=== PATIENT | male | born 1975 | race Asian ===

== ENCOUNTER 2019-08-23 12:34 | Inpatient (IN) | payer OTHER ==
[2019-08-23] MEDS ORDERED: ONDANSETRON 4 MG/2 ML INJ IV ONE (13:23)
[2019-08-23] MEDS ORDERED: SODIUM CHLORIDE 0.9% 1000 ML 1,000 ML IV ONE (13:23)
[2019-08-23] MEDS ORDERED: MORPHINE 4 MG/1 ML INJ IV ONE (13:24)
[2019-08-23] MEDS ORDERED: MORPHINE 2 MG/1 ML INJ ONE (13:26)
[2019-08-23] MEDS ORDERED: ONDANSETRON 4 MG/2 ML INJ ONE (13:26)
[2019-08-23] MEDS ORDERED: MORPHINE 2 MG/1 ML INJ IV ONE ×2 (13:28)
--- NOTE | 2019-08-23 13:29 | Event Note ---
ED Screening Note Date of service: 08/23/19 Time: 13:19 ED Screening Note: 44 y/o male c/o acute abd pain that woke him up this morning with N/V. Patient appears to be in distress diaphoretic with abd tenderness. This initial assessment/diagnostic orders/clinical plan/treatment(s) is/are sub ject to change based on patients health status, clinical progression and re- assessment by fellow clinical providers in the ED. Further treatment and workup at subsequent clinical providers discretion. Patient/guardian urged not to elope from the ED as their condition may be serious if not clinically assessed and managed. Initial orders include:
[2019-08-23 13:42] LABS: Hematocrit 51.5 % (35.5-45.6); Mean Corpuscular HGB Conc 35 % (32-34); Mean Corpuscular Volume 104 fl (84-94); Platelet Count 297 K/mm3 (140-440); Red Blood Count 4.96 M/mm3 (3.65-5.03); Red Cell Distribution Width 14.8 % (13.2-15.2)
[2019-08-23 14:02] LABS: Hemolysis Index 719
[2019-08-23 14:07] LABS: Alanine Aminotransferase TNR units/L (7-56); Albumin TNR g/dL (3.9-5); BUN/Creatinine Ratio TNR; Blood Urea Nitrogen TNR mg/dL (9-20); Calcium TNR mg/dL (8.4-10.2)
[2019-08-23 14:27] LABS: Band Neutrophils # (Manual) 0.4 K/mm3; Basophils % (Manual) 0 % (0.0-1.8); Eosinophils % (Manual) 0 % (0.0-4.3); Platelet Estimate Consistent w Auto; RBC Morphology Normal; Total Cells Counted 100
[2019-08-23] MEDS ORDERED: FAMOTIDINE 20 MG/2 ML INJ IV ONE ×2 (14:39→14:42)
[2019-08-23] MEDS ORDERED: KETOROLAC 30 MG/1 ML INJ IV ONE (14:39)
[2019-08-23] MEDS ORDERED: DICYCLOMINE 10 MG/5 ML ORAL LIQD PO ONE (14:39)
[2019-08-23] MEDS ORDERED: KETOROLAC 30 MG/1 ML INJ ONE (14:42)
[2019-08-23 14:44] LABS: Alanine Aminotransferase 79 units/L (7-56); Albumin 4.2 g/dL (3.9-5); BUN/Creatinine Ratio 3; Blood Urea Nitrogen 3 mg/dL (9-20); Hemolysis Index 13
--- NOTE | 2019-08-23 15:00 | Emergency Department Report ---
ED Abdominal Pain HPI - General Chief Complaint: Abdominal Pain Stated Complaint: ABD PAIN Time Seen by Provider: 08/23/19 13:18 Source: patient Mode of arrival: Ambulatory Limitations: No Limitations - History of Present Illness Initial Comments: This is a 44-year-old male who presents to ED with periumbilical abdominal pain with nausea vomiting that began yesterday. Patient states that his symptoms came around 1 AM today. Patient states that he is unable to hold any food or liquids down. Patient states he only had lobster and some vegetables for dinner last night. Patient states pain is mid abdominal nonradiating excruciating in nature. Patient does state that he is social drinker and had about 2 mixed drinks last night. He denies fevers/diarrhea/chest pain MD Complaint: abdominal pain Location: periumbilical Radiation: none Migration to: no migration Severity scale (0 -10): 10 Quality: cramping, stabbing, aching Consistency: constant Improves With: nothing Associated Symptoms: nausea, vomiting, chills. denies: diarrhea, fever, constipation - Related Data Allergies Allergy/AdvReac Type Severity Reaction Status Date / Time Penicillins Allergy Swelling Verified 08/23/19 12:35 ED Review of Systems ROS: Stated complaint: ABD PAIN Other details as noted in HPI Comment: All other systems reviewed and negative ED Past Medical Hx - Past Medical History Hx Hypertension: Yes - Surgical History Additional Surgical History: left shoulder - Social History Smoking Status: Current Every Day Smoker Substance Use Type: Alcohol, Marijuana ED Physical Exam - General Limitations: No Limitations General appearance: alert, in no apparent distress - Head Head exam: Present: atraumatic, normocephalic - Eye Eye exam: Present: normal appearance - ENT ENT exam: Present: mucous membranes moist - Neck Neck exam: Present: normal inspection - Respiratory Respiratory exam: Present: normal lung sounds bilaterally. Absent: respiratory distress - Cardiovascular Cardiovascular Exam: Present: regular rate, normal rhythm. Absent: systolic murmur, diastolic murmur, rubs, gallop - GI/Abdominal GI/Abdominal exam: Present: soft, tenderness, guarding, normal bowel sounds. Absent: rebound, mass - Rectal Rectal exam: Present: deferred - Extremities Exam Extremities exam: Present: normal inspection - Back Exam Back exam: Present: normal inspection - Neurological Exam Neurological exam: Present: alert, oriented X3 - Psychiatric Psychiatric exam: Present: normal affect, normal mood - Skin Skin exam: Present: warm, dry, intact, normal color. Absent: rash ED Course Vital Signs 08/23/19 08/23/19 08/23/19 13:20 13:59 14:08 Pulse Rate 114 H Respiratory 22 18 18 Rate Blood Pressure Blood Pressure 124/88 [Right] O2 Sat by Pulse 98 Oximetry 08/23/19 08/23/19 08/23/19 14:50 15:20 15:38 Pulse Rate 107 H Respiratory 18 18 18 Rate Blood Pressure 150/101 Blood Pressure [Right] O2 Sat by Pulse 100 Oximetry 08/23/19 08/23/19 08/23/19 17:22 17:52 18:17 Pulse Rate Respiratory 18 18 18 Rate Blood Pressure Blood Pressure [Right] O2 Sat by Pulse 99 Oximetry - Reevaluation(s) Reevaluation #1: 08/23/19 16:50 Patient has received morphine, Toradol and some fluids for pain. Patient states he still in a lot of pain. Some discomfort balled up in hospital bed groaning. Dilaudid 1 mg ordered. 08/23/19 17:02 - Consultations Consultation #1: Discussed patient with Dr. Leo at the hospitalist who is excepting patient to MedSurg service to be admitted inpatient 08/23/19 16:50 ED Medical Decision Making - Lab Data Result diagrams: 08/24/19 05:42 08/24/19 05:42 Laboratory Last Values WBC 13.8 K/mm3 (4.5-11.0) H 08/23/19 Unknown RBC 4.96 M/mm3 (3.65-5.03) 08/23/19 Unknown Hgb 18.0 gm/dl (11.8-15.2) H 08/23/19 Unknown Hct 51.5 % (35.5-45.6) H 08/23/19 Unknown MCV 104 fl (84-94) H 08/23/19 Unknown MCH 36 pg (28-32) H 08/23/19 Unknown MCHC 35 % (32-34) H 08/23/19 Unknown RDW 14.8 % (13.2-15.2) 08/23/19 Unknown Plt Count 297 K/mm3 (140-440) 08/23/19 Unknown Add Manual Diff Complete 08/23/19 Unknown Total Counted 100 08/23/19 Unknown Seg Neuts % (Manual) 94.0 % (40.0-70.0) H 08/23/19 Unknown Band Neutrophils % 3.0 % 08/23/19 Unknown Lymphocytes % (Manual) 0 % (13.4-35.0) L 08/23/19 Unknown Reactive Lymphs % (Man) 0 % 08/23/19 Unknown Monocytes % (Manual) 3.0 % (0.0-7.3) 08/23/19 Unknown Eosinophils % (Manual) 0 % (0.0-4.3) 08/23/19 Unknown Basophils % (Manual) 0 % (0.0-1.8) 08/23/19 Unknown Metamyelocytes % 0 % 08/23/19 Unknown Myelocytes % 0 % 08/23/19 Unknown Promyelocytes % 0 % 08/23/19 Unknown Blast Cells % 0 % 08/23/19 Unknown Nucleated RBC % 2.0 % (0.0-0.9) H 08/23/19 Unknown Seg Neutrophils # Man 13.0 K/mm3 (1.8-7.7) H 08/23/19 Unknown Band Neutrophils # 0.4 K/mm3 08/23/19 Unknown Lymphocytes # (Manual) 0.0 K/mm3 (1.2-5.4) L 08/23/19 Unknown Abs React Lymphs (Man) 0.0 K/mm3 08/23/19 Unknown Monocytes # (Manual) 0.4 K/mm3 (0.0-0.8) 08/23/19 Unknown Eosinophils # (Manual) 0.0 K/mm3 (0.0-0.4) 08/23/19 Unknown Basophils # (Manual) 0.0 K/mm3 (0.0-0.1) 08/23/19 Unknown Metamyelocytes # 0.0 K/mm3 08/23/19 Unknown Myelocytes # 0.0 K/mm3 08/23/19 Unknown Promyelocytes # 0.0 K/mm3 08/23/19 Unknown Blast Cells # 0.0 K/mm3 08/23/19 Unknown WBC Morphology Not Reportable 08/23/19 Unknown Hypersegmented Neuts Not Reportable 08/23/19 Unknown Hyposegmented Neuts Not Reportable 08/23/19 Unknown Hypogranular Neuts Not Reportable 08/23/19 Unknown Smudge Cells Not Reportable 08/23/19 Unknown Toxic Granulation Not Reportable 08/23/19 Unknown Toxic Vacuolation Not Reportable 08/23/19 Unknown Dohle Bodies Not Reportable 08/23/19 Unknown Pelger-Huet Anomaly Not Reportable 08/23/19 Unknown Ismael Rods Not Reportable 08/23/19 Unknown Platelet Estimate Consistent w auto 08/23/19 Unknown Clumped Platelets Not Reportable 08/23/19 Unknown Plt Clumps, EDTA Not Reportable 08/23/19 Unknown Large Platelets Not Reportable 08/23/19 Unknown Giant Platelets Not Reportable 08/23/19 Unknown Platelet Satelliting Not Reportable 08/23/19 Unknown Plt Morphology Comment Not Reportable 08/23/19 Unknown RBC Morphology Normal 08/23/19 Unknown Dimorphic RBCs Not Reportable 08/23/19 Unknown Polychromasia Not Reportable 08/23/19 Unknown Hypochromasia Not Reportable 08/23/19 Unknown Poikilocytosis Not Reportable 08/23/19 Unknown Anisocytosis Not Reportable 08/23/19 Unknown Microcytosis Not Reportable 08/23/19 Unknown Macrocytosis Not Reportable 08/23/19 Unknown Spherocytes Not Reportable 08/23/19 Unknown Pappenheimer Bodies Not Reportable 08/23/19 Unknown Sickle Cells Not Reportable 08/23/19 Unknown Target Cells Not Reportable 08/23/19 Unknown Tear Drop Cells Not Reportable 08/23/19 Unknown Ovalocytes Not Reportable 08/23/19 Unknown Helmet Cells Not Reportable 08/23/19 Unknown Lopez-Cobre Bodies Not Reportable 08/23/19 Unknown Ponsford Rings Not Reportable 08/23/19 Unknown Colby Cells Not Reportable 08/23/19 Unknown Bite Cells Not Reportable 08/23/19 Unknown Crenated Cell Not Reportable 08/23/19 Unknown Elliptocytes Not Reportable 08/23/19 Unknown Acanthocytes (Spur) Not Reportable 08/23/19 Unknown Rouleaux Not Reportable 08/23/19 Unknown Hemoglobin C Crystals Not Reportable 08/23/19 Unknown Schistocytes Not Reportable 08/23/19 Unknown Malaria parasites Not Reportable 08/23/19 Unknown Ryder Bodies Not Reportable 08/23/19 Unknown Hem Pathologist Commnt No 08/23/19 Unknown Sodium 141 mmol/L (137-145) 08/23/19 Unknown Sodium TNR 08/23/19 Unknown Potassium 2.2 mmol/L (3.6-5.0) L* 08/23/19 Unknown Potassium TNR 08/23/19 Unknown Chloride 89.2 mmol/L (98-107) L 08/23/19 Unknown Chloride TNR 08/23/19 Unknown Carbon Dioxide 22 mmol/L (22-30) 08/23/19 Unknown Carbon Dioxide TNR 08/23/19 Unknown Anion Gap 32 mmol/L 08/23/19 Unknown Anion Gap TNR 08/23/19 Unknown BUN 3 mg/dL (9-20) L 08/23/19 Unknown BUN TNR 08/23/19 Unknown Creatinine 0.9 mg/dL (0.8-1.5) 08/23/19 Unknown Creatinine TNR 08/23/19 Unknown Estimated GFR > 60 ml/min 08/23/19 Unknown Estimated GFR TNR 08/23/19 Unknown BUN/Creatinine Ratio 3 % 08/23/19 Unknown BUN/Creatinine Ratio TNR 08/23/19 Unknown Glucose 166 mg/dL (75-100) H 08/23/19 Unknown Glucose TNR 08/23/19 Unknown POC Glucose 156 (70-105) H 08/23/19 13:32 Calcium 9.0 mg/dL (8.4-10.2) 08/23/19 Unknown Calcium TNR 08/23/19 Unknown Total Bilirubin 1.40 mg/dL (0.1-1.2) H 08/23/19 Unknown Total Bilirubin TNR 08/23/19 Unknown AST 86 units/L (5-40) H 08/23/19 Unknown AST TNR 08/23/19 Unknown ALT 79 units/L (7-56) H 08/23/19 Unknown ALT TNR 08/23/19 Unknown Alkaline Phosphatase 219 units/L (35-129) H 08/23/19 Unknown Alkaline Phosphatase TNR 08/23/19 Unknown Total Protein 8.9 g/dL (6.3-8.2) H 08/23/19 Unknown Total Protein TNR 08/23/19 Unknown Albumin 4.2 g/dL (3.9-5) 08/23/19 Unknown Albumin TNR 08/23/19 Unknown Albumin/Globulin Ratio 0.9 % 08/23/19 Unknown Albumin/Globulin Ratio TNR 08/23/19 Unknown Lipase 526 units/L (13-60) H 08/23/19 Unknown Lipase TNR 08/23/19 Unknown - Radiology Data Radiology results: report reviewed, image reviewed - Medical Decision Making INDICATION: abd pain and tenderness. TECHNIQUE: All CT scans at this location are performed using CT dose reduction for ALARA by means of automated exposure control. COMPARISON: None available. FINDINGS: Lung bases are clear. Diffuse hepatic steatosis, with no focal liver lesions. Gallbladder, spleen, kidneys and adrenals are negative. Abdominal aorta is normal in size. Moderate inflammatory change and focal fluid accumulation are demonstrated in and around the pancreas, consistent with acute pancreatitis. Some fluid extends down the left paracolic space. Pelvis No significant free fluid in the pelvis. Urinary bladder and distal ureters are negative. Normal appendix. No acute skeletal lesions. IMPRESSION: 1. Acute pancreatitis. 2. Hepatic steatosis. Signer Name: Rob Eagle MD Signed: 08/23/2019 3:38 PM Workstation Name: [employer] Transcribed By: TM Dictated By: Rob Eagle MD Electronically Authenticated By: Rob Eagle MD Signed Date/Time: 08/23/19 1538 Critical care attestation.: If time is entered above; I have spent that time in minutes in the direct care of this critically ill patient, excluding procedure time. ED Disposition Clinical Impression: Hepatic steatosis, Hypokalemia, Abdominal pain, Acute hepatitis Acute pancreatitis Qualifiers: Pancreatitis type: unspecified pancreatitis type Disposition: OP ADMIT IP TO THIS HOSP Is pt being admited?: Yes Does the pt Need Aspirin: No Condition: Stable
[2019-08-23] MEDS: POTASSIUM CHLORIDE 10 MEQ 10 MEQ/100 ML BAG IV SCH ×4 (15:32→22:54)
--- NOTE | 2019-08-23 15:43 | Cat Scan Report ---
CT abdomen pelvis w con INDICATION: abd pain and tenderness. TECHNIQUE: All CT scans at this location are performed using CT dose reduction for ALARA by means of automated e xposure control. COMPARISON: None available. FINDINGS: Lung bases are clear. Diffuse hepatic steatosis, with no focal liver lesions. Gallbladder, spleen, ki dneys and adrenals are negative. Abdominal aorta is normal in size. Moderate inflammatory change and focal fluid accumulation are demonstrated in and around the pancreas , consistent with acute pancreatitis. Some fluid extends down the left paracolic space. Pelvis No significant free fluid in the pelvis. Urinary bladder and distal ureters are negative. Normal appe ndix. No acute skeletal lesions. IMPRESSION: 1. Acute pancreatitis. 2. Hepatic steatosis. Signer Name: Rob Eagle MD Signed: 08/23/2019 3:38 PM Workstation Name: [id number]
[2019-08-23] MEDS ORDERED: HYDROmorphone 1 MG/1 ML INJ IV ONE (17:00)
[2019-08-23 17:05] LABS: Bilirubin,Urine NEG (Negative); Blood,Urine MOD (Negative); Color,Urine Amber (Yellow); Hyaline Casts,Urine 3 /LPF; Mucus,Urine FEW /HPF; Urobilinogen,Urine < 2.0 mg/dL (<2.0)
[2019-08-23 17:06] LABS: Amphetamine Screen,Urine PRESUMPTIVE NEGATIVE; Benzodiazepines Screen,Urine PRESUMPTIVE NEGATIVE; Cocaine Screen,Urine PRESUMPTIVE NEGATIVE; Methadone Screen,Urine PRESUMPTIVE NEGATIVE
[2019-08-23] MEDS ORDERED: METOCLOPRAMIDE 10 MG/2 ML INJ ONE (17:16)
[2019-08-23 17:25] LABS: Cannabinoid Screen,Urine PRESUMPTIVE POSITIVE; Opiate Screen,Urine PRESUMPTIVE POSITIVE
[2019-08-23] MEDS ORDERED: METOCLOPRAMIDE 10 MG/2 ML INJ IV ONE (17:27)
[2019-08-23] MEDS ORDERED: ACETAMINOPHEN 325 MG TAB PO PRN (18:53)
[2019-08-23] MEDS ORDERED: D5W/0.9% NACL 1,000 ML IV SCH (19:00)
[2019-08-23] MEDS ORDERED: HYDROmorphone 1 MG/1 ML INJ ONE (19:16)
[2019-08-23] MEDS: HYDROmorphone 1 MG/1 ML INJ IV PRN ×2 (19:17→22:52)
--- NOTE | 2019-08-23 19:37 | History and Physical Report ---
History of Present Illness Date of examination: 08/23/19 Date of admission: 08/23/19 16:44 Chief complaint: Severe abdominal pain for 2 days associated with vomiting History of present illness: 44-year-old -[place] male with history of hypertension comes in for nausea vomiting and pain for 2 days. He says he has vomited "thousand times". Apparently he has vomited 10-12 times. Severe epigastric pain which is about 10 on a scale of 1-10. Sharp in nature. Not precipitated by alcohol. Patient consumes alcohol about twice a week. His last cocktail drink was 3 days ago. No precipitating factors. No NSAIDs. No drugs. No recent travel. No fever or chills. Pain is periumbilical and epigastric and sharp in nature radiating to the back. Unable to hold any foods. Past Medical History Hypertension: Yes Surgical History Additional Surgical History: left shoulder Social History Smoking Status: Current Every Day Smoker Substance Use Type: Alcohol, Marijuana Family history HTN Review of Systems ROS: Stated complaint: ABD PAIN--10 on a scale of 1-10 Sharp in nature associated with persistent vomiting for last 2 days. 14 point system review of systems done----otherwise negative Other details as noted in HPI Comment: All other systems reviewed and negative Medications and Allergies Allergies Allergy/AdvReac Type Severity Reaction Status Date / Time Penicillins Allergy Swelling Verified 08/23/19 12:35 Active Meds: Active Medications Acetaminophen (Tylenol) 650 mg PO Q4H PRN PRN Reason: Pain MILD(1-3)/Fever >100.5/DOCKERY Famotidine (Pepcid) 20 mg IV BID TERRI Hydromorphone HCl (Dilaudid) 1 mg IV Q3H PRN PRN Reason: Pain , Severe (7-10) Last Admin: 08/23/19 19:17 Dose: 1 mg Documented by: Dextrose/Sodium Chloride (D5ns) 1,000 mls @ 100 mls/hr IV DIRECT TERRI Potassium Chloride (Kcl 10meq/100ml) 10 meq in 100 mls @ 100 mls/hr IV Q1H [facility] Stop: 08/23/19 22:59 Metoclopramide HCl (Reglan) 10 mg IV Q6H PRN PRN Reason: Nausea And Vomiting Morphine Sulfate (Morphine) 2 mg IV Q4H PRN PRN Reason: Pain, Moderate (4-6) Ondansetron HCl (Zofran) 4 mg IV Q3H PRN PRN Reason: Nausea And Vomiting Sodium Chloride (Sodium Chloride Flush Syringe 10 Ml) 10 ml IV BID TERRI Sodium Chloride (Sodium Chloride Flush Syringe 10 Ml) 10 ml IV PRN PRN PRN Reason: LINE FLUSH Exam - Constitutional Vitals: Temp Pulse Resp BP Pulse Ox 107 H 18 150/101 99 08/23/19 15:38 08/23/19 18:17 08/23/19 15:38 08/23/19 18:17 General appearance: Present: mild distress - Cardiovascular Heart rate: 78 Rhythm: regular - Extremities Extremities: no ischemia Extremity abnormal: edema - Abdominal General gastrointestinal: Present: tender, normal bowel sounds Localized gastrointestinal: tender: diffuse, guarding: diffuse, rebound: diffuse Male genitourinary: Present: deferred - Rectal Rectal Exam: deferred - Musculoskeletal Musculoskeletal: strength equal bilaterally - Psychiatric Psychiatric: appropriate mood/affect - Neurologic Neurologic: CNII-XII intact - Allied Health Allied health notes reviewed: nursing, case management (No actually had good sleep on board will go) Results - Labs CBC & Chem 7: 08/23/19 Unknown 08/23/19 Unknown Labs: Laboratory Last Values WBC 13.8 K/mm3 (4.5-11.0) H 08/23/19 Unknown RBC 4.96 M/mm3 (3.65-5.03) 08/23/19 Unknown Hgb 18.0 gm/dl (11.8-15.2) H 08/23/19 Unknown Hct 51.5 % (35.5-45.6) H 08/23/19 Unknown MCV 104 fl (84-94) H 08/23/19 Unknown MCH 36 pg (28-32) H 08/23/19 Unknown MCHC 35 % (32-34) H 08/23/19 Unknown RDW 14.8 % (13.2-15.2) 08/23/19 Unknown Plt Count 297 K/mm3 (140-440) 08/23/19 Unknown Add Manual Diff Complete 08/23/19 Unknown Total Counted 100 08/23/19 Unknown Seg Neuts % (Manual) 94.0 % (40.0-70.0) H 08/23/19 Unknown Band Neutrophils % 3.0 % 08/23/19 Unknown Lymphocytes % (Manual) 0 % (13.4-35.0) L 08/23/19 Unknown Reactive Lymphs % (Man) 0 % 08/23/19 Unknown Monocytes % (Manual) 3.0 % (0.0-7.3) 08/23/19 Unknown Eosinophils % (Manual) 0 % (0.0-4.3) 08/23/19 Unknown Basophils % (Manual) 0 % (0.0-1.8) 08/23/19 Unknown Metamyelocytes % 0 % 08/23/19 Unknown Myelocytes % 0 % 08/23/19 Unknown Promyelocytes % 0 % 08/23/19 Unknown Blast Cells % 0 % 08/23/19 Unknown Nucleated RBC % 2.0 % (0.0-0.9) H 08/23/19 Unknown Seg Neutrophils # Man 13.0 K/mm3 (1.8-7.7) H 08/23/19 Unknown Band Neutrophils # 0.4 K/mm3 08/23/19 Unknown Lymphocytes # (Manual) 0.0 K/mm3 (1.2-5.4) L 08/23/19 Unknown Abs React Lymphs (Man) 0.0 K/mm3 08/23/19 Unknown Monocytes # (Manual) 0.4 K/mm3 (0.0-0.8) 08/23/19 Unknown Eosinophils # (Manual) 0.0 K/mm3 (0.0-0.4) 08/23/19 Unknown Basophils # (Manual) 0.0 K/mm3 (0.0-0.1) 08/23/19 Unknown Metamyelocytes # 0.0 K/mm3 08/23/19 Unknown Myelocytes # 0.0 K/mm3 08/23/19 Unknown Promyelocytes # 0.0 K/mm3 08/23/19 Unknown Blast Cells # 0.0 K/mm3 08/23/19 Unknown WBC Morphology Not Reportable 08/23/19 Unknown Hypersegmented Neuts Not Reportable 08/23/19 Unknown Hyposegmented Neuts Not Reportable 08/23/19 Unknown Hypogranular Neuts Not Reportable 08/23/19 Unknown Smudge Cells Not Reportable 08/23/19 Unknown Toxic Granulation Not Reportable 08/23/19 Unknown Toxic Vacuolation Not Reportable 08/23/19 Unknown Dohle Bodies Not Reportable 08/23/19 Unknown Pelger-Huet Anomaly Not Reportable 08/23/19 Unknown Ismael Rods Not Reportable 08/23/19 Unknown Platelet Estimate Consistent w auto 08/23/19 Unknown Clumped Platelets Not Reportable 08/23/19 Unknown Plt Clumps, EDTA Not Reportable 08/23/19 Unknown Large Platelets Not Reportable 08/23/19 Unknown Giant Platelets Not Reportable 08/23/19 Unknown Platelet Satelliting Not Reportable 08/23/19 Unknown Plt Morphology Comment Not Reportable 08/23/19 Unknown RBC Morphology Normal 08/23/19 Unknown Dimorphic RBCs Not Reportable 08/23/19 Unknown Polychromasia Not Reportable 08/23/19 Unknown Hypochromasia Not Reportable 08/23/19 Unknown Poikilocytosis Not Reportable 08/23/19 Unknown Anisocytosis Not Reportable 08/23/19 Unknown Microcytosis Not Reportable 08/23/19 Unknown Macrocytosis Not Reportable 08/23/19 Unknown Spherocytes Not Reportable 08/23/19 Unknown Pappenheimer Bodies Not Reportable 08/23/19 Unknown Sickle Cells Not Reportable 08/23/19 Unknown Target Cells Not Reportable 08/23/19 Unknown Tear Drop Cells Not Reportable 08/23/19 Unknown Ovalocytes Not Reportable 08/23/19 Unknown Helmet Cells Not Reportable 08/23/19 Unknown [place] Bodies Not Reportable 08/23/19 Unknown [place] Rings Not Reportable 08/23/19 Unknown Chani Cells Not Reportable 08/23/19 Unknown Bite Cells Not Reportable 08/23/19 Unknown Crenated Cell Not Reportable 08/23/19 Unknown Elliptocytes Not Reportable 08/23/19 Unknown Acanthocytes (Spur) Not Reportable 08/23/19 Unknown Rouleaux Not Reportable 08/23/19 Unknown Hemoglobin C Crystals Not Reportable 08/23/19 Unknown Schistocytes Not Reportable 08/23/19 Unknown Malaria parasites Not Reportable 08/23/19 Unknown Ryder Bodies Not Reportable 08/23/19 Unknown Hem Pathologist Commnt No 08/23/19 Unknown Sodium 141 mmol/L (137-145) 08/23/19 Unknown Sodium TNR 08/23/19 Unknown Potassium 2.2 mmol/L (3.6-5.0) L* 08/23/19 Unknown Potassium TNR 08/23/19 Unknown Chloride 89.2 mmol/L (98-107) L 08/23/19 Unknown Chloride TNR 08/23/19 Unknown Carbon Dioxide 22 mmol/L (22-30) 08/23/19 Unknown Carbon Dioxide TNR 08/23/19 Unknown Anion Gap 32 mmol/L 08/23/19 Unknown Anion Gap TNR 08/23/19 Unknown BUN 3 mg/dL (9-20) L 08/23/19 Unknown BUN TNR 08/23/19 Unknown Creatinine 0.9 mg/dL (0.8-1.5) 08/23/19 Unknown Creatinine TNR 08/23/19 Unknown Estimated GFR > 60 ml/min 08/23/19 Unknown Estimated GFR TNR 08/23/19 Unknown BUN/Creatinine Ratio 3 % 08/23/19 Unknown BUN/Creatinine Ratio TNR 08/23/19 Unknown Glucose 166 mg/dL (75-100) H 08/23/19 Unknown Glucose TNR 08/23/19 Unknown POC Glucose 156 (70-105) H 08/23/19 13:32 Hemoglobin A1c 4.8 % (4-6) 08/23/19 Unknown Calcium 9.0 mg/dL (8.4-10.2) 08/23/19 Unknown Calcium TNR 08/23/19 Unknown Total Bilirubin 1.40 mg/dL (0.1-1.2) H 08/23/19 Unknown Total Bilirubin TNR 08/23/19 Unknown AST 86 units/L (5-40) H 08/23/19 Unknown AST TNR 08/23/19 Unknown ALT 79 units/L (7-56) H 08/23/19 Unknown ALT TNR 08/23/19 Unknown Alkaline Phosphatase 219 units/L (35-129) H 08/23/19 Unknown Alkaline Phosphatase TNR 08/23/19 Unknown Total Protein 8.9 g/dL (6.3-8.2) H 08/23/19 Unknown Total Protein TNR 08/23/19 Unknown Albumin 4.2 g/dL (3.9-5) 08/23/19 Unknown Albumin TNR 08/23/19 Unknown Albumin/Globulin Ratio 0.9 % 08/23/19 Unknown Albumin/Globulin Ratio TNR 08/23/19 Unknown Lipase 526 units/L (13-60) H 08/23/19 Unknown Lipase TNR 08/23/19 Unknown Urine Color Navya (Yellow) 08/23/19 Unknown Urine Turbidity Clear (Clear) 08/23/19 Unknown Urine pH 6.0 (5.0-7.0) 08/23/19 Unknown Ur Specific [place] 1.038 (1.003-1.030) H 08/23/19 Unknown Urine Protein 100 mg/dl mg/dL (Negative) 08/23/19 Unknown Urine Glucose (UA) Neg mg/dL (Negative) 08/23/19 Unknown Urine Ketones Tr mg/dL (Negative) 08/23/19 Unknown Urine Blood Mod (Negative) 08/23/19 Unknown Urine Nitrite Neg (Negative) 08/23/19 Unknown Urine Bilirubin Neg (Negative) 08/23/19 Unknown Urine Urobilinogen < 2.0 mg/dL (<2.0) 08/23/19 Unknown Ur Leukocyte Esterase Neg (Negative) 08/23/19 Unknown Urine WBC (Auto) 3.0 /HPF (0.0-6.0) 08/23/19 Unknown Urine RBC (Auto) 11.0 /HPF (0.0-6.0) 08/23/19 Unknown Hyaline Casts 3 /LPF 08/23/19 Unknown Urine Mucus Few /HPF 08/23/19 Unknown Urine Opiates Screen Presumptive positive 08/23/19 Unknown Urine Methadone Screen Presumptive negative 08/23/19 Unknown Ur Barbiturates Screen Presumptive negative 08/23/19 Unknown Ur Phencyclidine Scrn Presumptive negative 08/23/19 Unknown Ur Amphetamines Screen Presumptive negative 08/23/19 Unknown U Benzodiazepines Scrn Presumptive negative 08/23/19 Unknown Urine Cocaine Screen Presumptive negative 08/23/19 Unknown U Marijuana (THC) Screen Presumptive positive 08/23/19 Unknown Drugs of Abuse Note Disclamer 08/23/19 Unknown Short CBC 08/23/19 Range/Units Unknown WBC 13.8 H (4.5-11.0) K/mm3 Hgb 18.0 H (11.8-15.2) gm/dl Hct 51.5 H (35.5-45.6) % Plt Count 297 (140-440) K/mm3 BMP 08/23/19 08/23/19 Unknown Unknown Sodium TNR 141 Potassium TNR 2.2 L* Chloride TNR 89.2 L Carbon Dioxide TNR 22 BUN TNR 3 L Creatinine TNR 0.9 Glucose TNR 166 H Calcium TNR 9.0 Liver Function 08/23/19 08/23/19 Range/Units Unknown Unknown Total Bilirubin TNR 1.40 H AST TNR 86 H ALT TNR 79 H Alkaline Phosphatase TNR 219 H Albumin TNR 4.2 Urine 08/23/19 Range/Units Unknown Urine Color Navya (Yellow) Urine pH 6.0 (5.0-7.0) Ur Specific [place] 1.038 H (1.003-1.030) Urine Protein 100 mg/dl (Negative) mg/dL Urine Glucose (UA) Neg (Negative) mg/dL - Imaging and Cardiology CT scan - abdomen: report reviewed Imaging and Cardiology: CT of the abdomen. The blood. Broke there is broken broken FINDINGS: Lung bases are clear. Diffuse hepatic steatosis, with no focal liver lesions. Gallbladder, spleen, kidneys and adrenals are negative. Abdominal aorta is normal in size. Moderate inflammatory change and focal fluid accumulation are demonstrated in and around the pancreas, consistent with acute pancreatitis. Some fluid extends down the left paracolic space. Pelvis No significant free fluid in the pelvis. Urinary bladder and distal ureters are negative. Normal appendix. No acute skeletal lesions. IMPRESSION: 1. Acute pancreatitis. 2. Hepatic steatosis. Assessment and Plan Advance Directives: Yes (Full code) VTE prophylaxis?: Chemical Plan of care discussed with patient/family: Yes - Patient Problems (1) Acute pancreatitis Current Visit: Yes Status: Acute Qualifiers: Pancreatitis type: unspecified pancreatitis type Plan to address problem: CT scan and lipase consistent with acute pancreatitis Keep the patient nothing by mouth IV fluids for now IV Dilaudid 1 mg every 3 as needed along with Zofran and Reglan on a as needed basis TPN if necessary Symptoms may resolve in 48 to 72 hours (2) Hypokalemia Current Visit: Yes Status: Acute Plan to address problem: Supplemented with IV potassium Secondary to persistent vomiting (3) Transaminitis Current Visit: Yes Status: Acute Plan to address problem: Possible gallstone induced We will get surgery consult and GI consult (4) Acute hepatitis Current Visit: Yes Status: Acute Plan to address problem: Possible gallstone obstruction (5) Polycythemia due to fall in plasma volume Current Visit: Yes Status: Acute Plan to address problem: Polycythemia secondary to fall in volume because of vomiting Should correct with IV fluids (6) DVT prophylaxis Current Visit: Yes Status: Acute Plan to address problem: Heparin 5000 subcu every 12 and GI prophylaxis
[2019-08-23] MEDS: MORPHINE 2 MG/1 ML INJ IV PRN (20:48)
[2019-08-23] MEDS: FAMOTIDINE 20 MG/2 ML INJ IV SCH (22:43)
[2019-08-23] MEDS: HEPARIN 5,000 UNIT/1 ML VIAL SUB-Q SCH (22:47)
[2019-08-23] MEDS: ONDANSETRON 4 MG/2 ML INJ IV PRN (22:51)
[2019-08-24] MEDS: POTASSIUM CHLORIDE 10 MEQ 10 MEQ/100 ML BAG IV SCH ×2 (00:53→02:14)
[2019-08-24] MEDS: MORPHINE 2 MG/1 ML INJ IV PRN ×2 (00:53→05:00)
[2019-08-24] MEDS: HYDROmorphone 1 MG/1 ML INJ IV PRN ×6 (02:00→19:59)
[2019-08-24] MEDS: ONDANSETRON 4 MG/2 ML INJ IV PRN ×3 (05:04→21:12)
[2019-08-24 06:06] LABS: Basophils # (Auto) 0.1 K/mm3 (0.0-0.1); Basophils % (Auto) 0.4 % (0.0-1.8); Hemoglobin 17.7 gm/dl (11.8-15.2); Lymphocytes # (Auto) 0.6 K/mm3 (1.2-5.4); Lymphocytes % (Auto) 3.6 % (13.4-35.0); Mean Corpuscular HGB Conc 34 % (32-34); Mean Corpuscular Volume 104 fl (84-94); Monocytes # (Auto) 1.7 K/mm3 (0.0-0.8); Monocytes % (Auto) 10.4 % (0.0-7.3); Red Blood Count 4.98 M/mm3 (3.65-5.03); Red Cell Distribution Width 14.5 % (13.2-15.2)
[2019-08-24 06:12] LABS: Platelet Count 224 K/mm3 (140-440)
[2019-08-24 06:29] LABS: BUN/Creatinine Ratio 3; Blood Urea Nitrogen 3 mg/dL (9-20); Calcium 8.6 mg/dL (8.4-10.2); Hemolysis Index 131
[2019-08-24 08:01] LABS: Alanine Aminotransferase 66 units/L (7-56)
[2019-08-24] MEDS: FAMOTIDINE 20 MG/2 ML INJ IV SCH ×2 (09:43→21:13)
[2019-08-24] MEDS ORDERED: SODIUM CHLORIDE 0.9% 1000 ML 1,000 ML IV SCH (09:45)
[2019-08-24] MEDS: HEPARIN 5,000 UNIT/1 ML VIAL SUB-Q SCH ×2 (09:46→21:13)
--- NOTE | 2019-08-24 10:08 | Gastroenterology Consultation ---
History of Present Illness - Reason for Consult Consult date: 08/24/19 Abdominal pain, pancreatitis Requesting physician: ALFONZO BABB - History of Present Illness The patient is a 44 yo aam who presents with abdominal pain and n/v. Symptoms started one day prior to admission. He reports new onset generalized abdominal pain with nausea/vomiting. Pt found to have acute pancreatitis on labs/imaging with elevated liver enzymes (mixed pattern, unknown baseline) on admission. History of alcohol use but unable to get details regarding amount of intake at time of exam (due to distress related to pain). Denies similar symptoms in the past or known h/o pancreatitis or liver disease. Past History Past Medical History: hypertension Past Surgical History: Other (shoulder surgery) Social history: alcohol abuse, other (marijuana use) Family history: hypertension Medications and Allergies Allergies Allergy/AdvReac Type Severity Reaction Status Date / Time Penicillins Allergy Swelling Verified 08/23/19 12:35 Active Meds: Active Medications Acetaminophen (Tylenol) 650 mg PO Q4H PRN PRN Reason: Pain MILD(1-3)/Fever >100.5/DOCKERY Famotidine (Pepcid) 20 mg IV BID [facility] Last Admin: 08/24/19 09:43 Dose: 20 mg Documented by: Heparin Sodium (Porcine) (Heparin) 5,000 unit SUB-Q Q12HR [facility] Last Admin: 08/24/19 09:46 Dose: 5,000 unit Documented by: Hydromorphone HCl (Dilaudid) 1 mg IV Q3H PRN PRN Reason: Pain , Severe (7-10) Last Admin: 08/24/19 08:55 Dose: 1 mg Documented by: Sodium Chloride (Nacl 0.9% 1000 Ml) 1,000 mls @ 150 mls/hr IV DIRECT [facility] Metoclopramide HCl (Reglan) 10 mg IV Q6H PRN PRN Reason: Nausea And Vomiting Morphine Sulfate (Morphine) 2 mg IV Q4H PRN PRN Reason: Pain, Moderate (4-6) Last Admin: 08/24/19 05:00 Dose: 2 mg Documented by: Ondansetron HCl (Zofran) 4 mg IV Q3H PRN PRN Reason: Nausea And Vomiting Last Admin: 08/24/19 09:43 Dose: 4 mg Documented by: Sodium Chloride (Sodium Chloride Flush Syringe 10 Ml) 10 ml IV BID [facility] Last Admin: 02/11/20 22:44 Dose: 10 ml Documented by: Sodium Chloride (Sodium Chloride Flush Syringe 10 Ml) 10 ml IV PRN PRN PRN Reason: LINE FLUSH Reviewed/updated patient's home and current medications Review of Systems - Review of Systems All systems: negative (per HPI) Exam - Constitutional Vital Signs: Temp Pulse Resp BP Pulse Ox 97.3 F L 76 20 136/72 100 08/23/19 21:00 08/24/19 06:15 08/24/19 06:00 08/24/19 06:15 08/23/19 21:00 General appearance: mild distress (due to pain) - EENT Eyes: PERRL, EOM intact - Neck Neck: supple, normal ROM - Respiratory Respiratory effort: normal Respiratory: bilateral: CTA - Cardiovascular Rhythm: regular Heart Sounds: Present: S1 & S2 Extremities: No edema, Full ROM - Gastrointestinal General gastrointestinal: Present: soft, tender (diffuse ttp), non-distended - Integumentary Integumentary: Present: clear, warm - Neurologic Neurological: alert and oriented x3 - Labs CBC & Chem 7: 08/24/19 05:42 08/24/19 05:42 Lab Results: Laboratory Results - last 24 hr 08/23/19 08/23/19 08/23/19 13:32 Unknown Unknown WBC 13.8 H RBC 4.96 Hgb 18.0 H Hct 51.5 H MCV 104 H MCH 36 H MCHC 35 H RDW 14.8 Plt Count 297 Lymph % (Auto) [place] % (Auto) Eos % (Auto) Baso % (Auto) Lymph # [place] # Eos # Baso # Add Manual Diff Complete Total Counted 100 Seg Neutrophils % Seg Neuts % (Manual) 94.0 H Band Neutrophils % 3.0 Lymphocytes % (Manual) 0 L Reactive Lymphs % (Man) 0 Monocytes % (Manual) 3.0 Eosinophils % (Manual) 0 Basophils % (Manual) 0 Metamyelocytes % 0 Myelocytes % 0 Promyelocytes % 0 Blast Cells % 0 Nucleated RBC % 2.0 H Seg Neutrophils # Seg Neutrophils # Man 13.0 H Band Neutrophils # 0.4 Lymphocytes # (Manual) 0.0 L Abs React Lymphs (Man) 0.0 Monocytes # (Manual) 0.4 Eosinophils # (Manual) 0.0 Basophils # (Manual) 0.0 Metamyelocytes # 0.0 Myelocytes # 0.0 Promyelocytes # 0.0 Blast Cells # 0.0 WBC Morphology Not Reportable Hypersegmented Neuts Not Reportable Hyposegmented Neuts Not Reportable Hypogranular Neuts Not Reportable Smudge Cells Not Reportable Toxic Granulation Not Reportable Toxic Vacuolation Not Reportable Dohle Bodies Not Reportable Pelger-Huet Anomaly Not Reportable Ismael Rods Not Reportable Platelet Estimate Consistent w auto Clumped Platelets Not Reportable Plt Clumps, EDTA Not Reportable Large Platelets Not Reportable Giant Platelets Not Reportable Platelet Satelliting Not Reportable Plt Morphology Comment Not Reportable RBC Morphology Normal Dimorphic RBCs Not Reportable Polychromasia Not Reportable Hypochromasia Not Reportable Poikilocytosis Not Reportable Anisocytosis Not Reportable Microcytosis Not Reportable Macrocytosis Not Reportable Spherocytes Not Reportable Pappenheimer Bodies Not Reportable Sickle Cells Not Reportable Target Cells Not Reportable Tear Drop Cells Not Reportable Ovalocytes Not Reportable Helmet Cells Not Reportable Lopez-Grapevine Bodies Not Reportable [place] Rings Not Reportable Chani Cells Not Reportable Bite Cells Not Reportable Crenated Cell Not Reportable Elliptocytes Not Reportable Acanthocytes (Spur) Not Reportable Rouleaux Not Reportable Hemoglobin C Crystals Not Reportable Schistocytes Not Reportable Malaria parasites Not Reportable Ryder Bodies Not Reportable Hem Pathologist Commnt No Sodium Potassium Chloride Carbon Dioxide Anion Gap BUN Creatinine Estimated GFR BUN/Creatinine Ratio Glucose POC Glucose 156 H Hemoglobin A1c Calcium Total Bilirubin AST ALT Alkaline Phosphatase Total Protein Albumin Albumin/Globulin Ratio Lipase Urine Color [place] Urine Turbidity Clear Urine pH 6.0 Ur Specific [place] 1.038 H Urine Protein 100 mg/dl Urine Glucose (UA) Neg Urine Ketones Tr Urine Blood Mod Urine Nitrite Neg Urine Bilirubin Neg Urine Urobilinogen < 2.0 Ur Leukocyte Esterase Neg Urine WBC (Auto) 3.0 Urine RBC (Auto) 11.0 Hyaline Casts 3 Urine Mucus Few Urine Opiates Screen Urine Methadone Screen Ur Barbiturates Screen Ur Phencyclidine Scrn Ur Amphetamines Screen U Benzodiazepines Scrn Urine Cocaine Screen U Marijuana (THC) Screen Drugs of Abuse Note 08/23/19 08/23/19 08/23/19 Unknown Unknown Unknown WBC RBC Hgb Hct MCV MCH MCHC RDW Plt Count Lymph % (Auto) [place] % (Auto) Eos % (Auto) Baso % (Auto) Lymph # [place] # Eos # Baso # Add Manual Diff Total Counted Seg Neutrophils % Seg Neuts % (Manual) Band Neutrophils % Lymphocytes % (Manual) Reactive Lymphs % (Man) Monocytes % (Manual) Eosinophils % (Manual) Basophils % (Manual) Metamyelocytes % Myelocytes % Promyelocytes % Blast Cells % Nucleated RBC % Seg Neutrophils # Seg Neutrophils # Man Band Neutrophils # Lymphocytes # (Manual) Abs React Lymphs (Man) Monocytes # (Manual) Eosinophils # (Manual) Basophils # (Manual) Metamyelocytes # Myelocytes # Promyelocytes # Blast Cells # WBC Morphology Hypersegmented Neuts Hyposegmented Neuts Hypogranular Neuts Smudge Cells Toxic Granulation Toxic Vacuolation Dohle Bodies Pelger-Huet Anomaly Ismael Rods Platelet Estimate Clumped Platelets Plt Clumps, EDTA Large Platelets Giant Platelets Platelet Satelliting Plt Morphology Comment RBC Morphology Dimorphic RBCs Polychromasia Hypochromasia Poikilocytosis Anisocytosis Microcytosis Macrocytosis Spherocytes Pappenheimer Bodies Sickle Cells Target Cells Tear Drop Cells Ovalocytes Helmet Cells Lopez-[place]rape[place] Bodies [place] Rings Chani Cells Bite Cells Crenated Cell Elliptocytes Acanthocytes (Spur) Rouleaux Hemoglobin C Crystals Schistocytes Malaria parasites Ryder Bodies Hem Pathologist Commnt Sodium TNR Potassium TNR Chloride TNR Carbon Dioxide TNR Anion Gap TNR BUN TNR Creatinine TNR Estimated GFR TNR BUN/Creatinine Ratio TNR Glucose TNR POC Glucose Hemoglobin A1c Calcium TNR Total Bilirubin TNR AST TNR ALT TNR Alkaline Phosphatase TNR Total Protein TNR Albumin TNR Albumin/Globulin Ratio TNR Lipase TNR Urine Color Urine Turbidity Urine pH Ur Specific [place] Urine Protein Urine Glucose (UA) Urine Ketones Urine Blood Urine Nitrite Urine Bilirubin Urine Urobilinogen Ur Leukocyte Esterase Urine WBC (Auto) Urine RBC (Auto) Hyaline Casts Urine Mucus Urine Opiates Screen Presumptive positive Urine Methadone Screen Presumptive negative Ur Barbiturates Screen Presumptive negative Ur Phencyclidine Scrn Presumptive negative Ur Amphetamines Screen Presumptive negative U Benzodiazepines Scrn Presumptive negative Urine Cocaine Screen Presumptive negative U Marijuana (THC) Screen Presumptive positive Drugs of Abuse Note Disclamer 08/23/19 08/23/19 08/24/19 Unknown Unknown 05:42 WBC 16.6 H RBC 4.98 Hgb 17.7 H Hct 52.0 H MCV 104 H MCH 36 H MCHC 34 RDW 14.5 Plt Count 224 Lymph % (Auto) 3.6 L [place] % (Auto) 10.4 H Eos % (Auto) 0.0 Baso % (Auto) 0.4 Lymph # 0.6 L [place] # 1.7 H Eos # 0.0 Baso # 0.1 Add Manual Diff Total Counted Seg Neutrophils % 85.6 H Seg Neuts % (Manual) Band Neutrophils % Lymphocytes % (Manual) Reactive Lymphs % (Man) Monocytes % (Manual) Eosinophils % (Manual) Basophils % (Manual) Metamyelocytes % Myelocytes % Promyelocytes % Blast Cells % Nucleated RBC % Seg Neutrophils # 14.2 H Seg Neutrophils # Man Band Neutrophils # Lymphocytes # (Manual) Abs React Lymphs (Man) Monocytes # (Manual) Eosinophils # (Manual) Basophils # (Manual) Metamyelocytes # Myelocytes # Promyelocytes # Blast Cells # WBC Morphology Hypersegmented Neuts Hyposegmented Neuts Hypogranular Neuts Smudge Cells Toxic Granulation Toxic Vacuolation Dohle Bodies Pelger-Huet Anomaly Ismael Rods Platelet Estimate Clumped Platelets Plt Clumps, EDTA Large Platelets Giant Platelets Platelet Satelliting Plt Morphology Comment RBC Morphology Dimorphic RBCs Polychromasia Hypochromasia Poikilocytosis Anisocytosis Microcytosis Macrocytosis Spherocytes Pappenheimer Bodies Sickle Cells Target Cells Tear Drop Cells Ovalocytes Helmet Cells Lopez-Grapevine Bodies [place] Rings Chani Cells Bite Cells Crenated Cell Elliptocytes Acanthocytes (Spur) Rouleaux Hemoglobin C Crystals Schistocytes Malaria parasites Ryder Bodies Hem Pathologist Commnt Sodium 141 Potassium 2.2 L* Chloride 89.2 L Carbon Dioxide 22 Anion Gap 32 BUN 3 L Creatinine 0.9 Estimated GFR > 60 BUN/Creatinine Ratio 3 Glucose 166 H POC Glucose Hemoglobin A1c 4.8 Calcium 9.0 Total Bilirubin 1.40 H AST 86 H ALT 79 H Alkaline Phosphatase 219 H Total Protein 8.9 H Albumin 4.2 Albumin/Globulin Ratio 0.9 Lipase 526 H Urine Color Urine Turbidity Urine pH Ur Specific [place] Urine Protein Urine Glucose (UA) Urine Ketones Urine Blood Urine Nitrite Urine Bilirubin Urine Urobilinogen Ur Leukocyte Esterase Urine WBC (Auto) Urine RBC (Auto) Hyaline Casts Urine Mucus Urine Opiates Screen Urine Methadone Screen Ur Barbiturates Screen Ur Phencyclidine Scrn Ur Amphetamines Screen U Benzodiazepines Scrn Urine Cocaine Screen U Marijuana (THC) Screen Drugs of Abuse Note 08/24/19 05:42 WBC RBC Hgb Hct MCV MCH MCHC RDW Plt Count Lymph % (Auto) [place] % (Auto) Eos % (Auto) Baso % (Auto) Lymph # [place] # Eos # Baso # Add Manual Diff Total Counted Seg Neutrophils % Seg Neuts % (Manual) Band Neutrophils % Lymphocytes % (Manual) Reactive Lymphs % (Man) Monocytes % (Manual) Eosinophils % (Manual) Basophils % (Manual) Metamyelocytes % Myelocytes % Promyelocytes % Blast Cells % Nucleated RBC % Seg Neutrophils # Seg Neutrophils # Man Band Neutrophils # Lymphocytes # (Manual) Abs React Lymphs (Man) Monocytes # (Manual) Eosinophils # (Manual) Basophils # (Manual) Metamyelocytes # Myelocytes # Promyelocytes # Blast Cells # WBC Morphology Hypersegmented Neuts Hyposegmented Neuts Hypogranular Neuts Smudge Cells Toxic Granulation Toxic Vacuolation Dohle Bodies Pelger-Huet Anomaly Ismael Rods Platelet Estimate Clumped Platelets Plt Clumps, EDTA Large Platelets Giant Platelets Platelet Satelliting Plt Morphology Comment RBC Morphology Dimorphic RBCs Polychromasia Hypochromasia Poikilocytosis Anisocytosis Microcytosis Macrocytosis Spherocytes Pappenheimer Bodies Sickle Cells Target Cells Tear Drop Cells Ovalocytes Helmet Cells Lopez-Grapevine Bodies [place] Rings [place] Cells Bite Cells Crenated Cell Elliptocytes Acanthocytes (Spur) Rouleaux Hemoglobin C Crystals Schistocytes Malaria parasites Ryder Bodies Hem Pathologist Commnt Sodium 143 Potassium 4.4 D Chloride 93.6 L Carbon Dioxide 23 Anion Gap 31 BUN 3 L Creatinine 1.0 Estimated GFR > 60 BUN/Creatinine Ratio 3 Glucose 161 H POC Glucose Hemoglobin A1c Calcium 8.6 Total Bilirubin 1.30 H AST 77 H ALT 66 H Alkaline Phosphatase 171 H Total Protein 8.6 H Albumin 4.0 Albumin/Globulin Ratio 0.9 Lipase Urine Color Urine Turbidity Urine pH Ur Specific [place] Urine Protein Urine Glucose (UA) Urine Ketones Urine Blood Urine Nitrite Urine Bilirubin Urine Urobilinogen Ur Leukocyte Esterase Urine WBC (Auto) Urine RBC (Auto) Hyaline Casts Urine Mucus Urine Opiates Screen Urine Methadone Screen Ur Barbiturates Screen Ur Phencyclidine Scrn Ur Amphetamines Screen U Benzodiazepines Scrn Urine Cocaine Screen U Marijuana (THC) Screen Drugs of Abuse Note - Imaging CT Scan: report reviewed Ultrasound: report reviewed Assessment and Plan 1. Acute pancreatitis - unclear if from alcohol vs biliary pancreatitis (no stones on imaging, but elevated liver enzymes which could also be due to alcohol liver injury). needs aggressive IVF hydration (not receiving IVF's at time of exam; discussed with nurse to bolus current liter and then rate of 200 cc/hr). 2. Elevated liver enzymes - ? alcohol related/underlying liver disease vs passed gallstone in setting of acute pancreatitis. No stones on US and CBD normal sized. trend for now.
--- NOTE | 2019-08-24 11:20 | Consultation ---
History of Present Illness Consult date: 08/24/19 Reason for consult: abdominal pain Chief complaint: abdominal pain - History of present illness History of present illness: 44-year-old male with history of hypertension who presented to the emergency [facility] with 2 days of gastric abdominal pain, sharp, sudden onset. He states that he ate jumbo lie of her dinner and the pain started soon thereafter. He has never had problems with any food in the past. He states that he drinks to alcoholic beverages a day for the last 6 years. The pain on onset was attended 10 in severity and is now a 7 out of 10 in severity. He had too numerous to count episodes of nonbloody/nonbilious emesis. He states his nausea is improved and he feels thirsty now. No fevers, chills, chest pain, shortness of breath. Past History Past Medical History: hypertension Past Surgical History: Other (shoulder surgery) Social history: smoking (1 pack per day, marijuana), alcohol abuse (2 alcoholic beverages a day) Family history: CAD Medications and Allergies Allergies Allergy/AdvReac Type Severity Reaction Status Date / Time Penicillins Allergy Swelling Verified 08/23/19 12:35 Active Meds: Active Medications Acetaminophen (Tylenol) 650 mg PO Q4H PRN PRN Reason: Pain MILD(1-3)/Fever >100.5/DOCKERY Famotidine (Pepcid) 20 mg IV BID [facility] Last Admin: 08/24/19 09:43 Dose: 20 mg Documented by: Heparin Sodium (Porcine) (Heparin) 5,000 unit SUB-Q Q12HR [facility] Last Admin: 08/24/19 09:46 Dose: 5,000 unit Documented by: Hydromorphone HCl (Dilaudid) 1 mg IV Q3H PRN PRN Reason: Pain , Severe (7-10) Last Admin: 08/24/19 08:55 Dose: 1 mg Documented by: Sodium Chloride (Nacl 0.9% 1000 Ml) 1,000 mls @ 150 mls/hr IV DIRECT [facility] Metoclopramide HCl (Reglan) 10 mg IV Q6H PRN PRN Reason: Nausea And Vomiting Morphine Sulfate (Morphine) 2 mg IV Q4H PRN PRN Reason: Pain, Moderate (4-6) Last Admin: 08/24/19 05:00 Dose: 2 mg Documented by: Ondansetron HCl (Zofran) 4 mg IV Q3H PRN PRN Reason: Nausea And Vomiting Last Admin: 08/24/19 09:43 Dose: 4 mg Documented by: Sodium Chloride (Sodium Chloride Flush Syringe 10 Ml) 10 ml IV BID [facility] Last Admin: 08/23/19 22:44 Dose: 10 ml Documented by: Sodium Chloride (Sodium Chloride Flush Syringe 10 Ml) 10 ml IV PRN PRN PRN Reason: LINE FLUSH Review of Systems All systems: negative (10 point review of systems was performed and negative except for that listed in HPI) Exam Vital Signs Pulse Resp BP Pulse Ox 114 H 22 124/88 98 08/23/19 13:20 08/23/19 13:20 08/23/19 13:20 08/23/19 13:20 Narrative exam: Enteral: Awake, alert, oriented 3. No apparent distress ENT: No scleral icterus or conjunctival pallor CV: S1, S2 present Respiratory: No audible wheezes Abdomen: Soft, nondistended, moderate tenderness to palpation in the epigastric area without rebound rigidity or guarding Extremities: No clubbing, cyanosis, edema Results - Labs 08/24/19 05:42 08/24/19 05:42 Abnormal lab results 08/23/19 08/23/19 08/23/19 Range/Units 13:32 Unknown Unknown WBC 13.8 H (4.5-11.0) K/mm3 Hgb 18.0 H (11.8-15.2) gm/dl Hct 51.5 H (35.5-45.6) % MCV 104 H (84-94) fl MCH 36 H (28-32) pg MCHC 35 H (32-34) % Lymph % (Auto) (13.4-35.0) % [place] % (Auto) (0.0-7.3) % Lymph # (1.2-5.4) K/mm3 [place] # (0.0-0.8) K/mm3 Seg Neutrophils % (40.0-70.0) % Seg Neuts % (Manual) 94.0 H (40.0-70.0) % Lymphocytes % (Manual) 0 L (13.4-35.0) % Nucleated RBC % 2.0 H (0.0-0.9) % Seg Neutrophils # (1.8-7.7) K/mm3 Seg Neutrophils # Man 13.0 H (1.8-7.7) K/mm3 Lymphocytes # (Manual) 0.0 L (1.2-5.4) K/mm3 Potassium (3.6-5.0) mmol/L Chloride (98-107) mmol/L BUN (9-20) mg/dL Glucose (75-100) mg/dL POC Glucose 156 H (70-105) Total Bilirubin (0.1-1.2) mg/dL AST (5-40) units/L ALT (7-56) units/L Alkaline Phosphatase (35-129) units/L Total Protein (6.3-8.2) g/dL Lipase (13-60) units/L Ur Specific [place] 1.038 H (1.003-1.030) 08/23/19 08/24/19 08/24/19 Range/Units Unknown 05:42 05:42 WBC 16.6 H (4.5-11.0) K/mm3 Hgb 17.7 H (11.8-15.2) gm/dl Hct 52.0 H (35.5-45.6) % MCV 104 H (84-94) fl MCH 36 H (28-32) pg MCHC (32-34) % Lymph % (Auto) 3.6 L (13.4-35.0) % [place] % (Auto) 10.4 H (0.0-7.3) % Lymph # 0.6 L (1.2-5.4) K/mm3 [place] # 1.7 H (0.0-0.8) K/mm3 Seg Neutrophils % 85.6 H (40.0-70.0) % Seg Neuts % (Manual) (40.0-70.0) % Lymphocytes % (Manual) (13.4-35.0) % Nucleated RBC % (0.0-0.9) % Seg Neutrophils # 14.2 H (1.8-7.7) K/mm3 Seg Neutrophils # Man (1.8-7.7) K/mm3 Lymphocytes # (Manual) (1.2-5.4) K/mm3 Potassium 2.2 L* (3.6-5.0) mmol/L Chloride 89.2 L 93.6 L (98-107) mmol/L BUN 3 L 3 L (9-20) mg/dL Glucose 166 H 161 H (75-100) mg/dL POC Glucose (70-105) Total Bilirubin 1.40 H 1.30 H (0.1-1.2) mg/dL AST 86 H 77 H (5-40) units/L ALT 79 H 66 H (7-56) units/L Alkaline Phosphatase 219 H 171 H (35-129) units/L Total Protein 8.9 H 8.6 H (6.3-8.2) g/dL Lipase 526 H (13-60) units/L Ur Specific [place] (1.003-1.030) 08/24/19 Range/Units 05:42 WBC (4.5-11.0) K/mm3 Hgb (11.8-15.2) gm/dl Hct (35.5-45.6) % MCV (84-94) fl MCH (28-32) pg MCHC (32-34) % Lymph % (Auto) (13.4-35.0) % [place] % (Auto) (0.0-7.3) % Lymph # (1.2-5.4) K/mm3 [place] # (0.0-0.8) K/mm3 Seg Neutrophils % (40.0-70.0) % Seg Neuts % (Manual) (40.0-70.0) % Lymphocytes % (Manual) (13.4-35.0) % Nucleated RBC % (0.0-0.9) % Seg Neutrophils # (1.8-7.7) K/mm3 Seg Neutrophils # Man (1.8-7.7) K/mm3 Lymphocytes # (Manual) (1.2-5.4) K/mm3 Potassium (3.6-5.0) mmol/L Chloride (98-107) mmol/L BUN (9-20) mg/dL Glucose (75-100) mg/dL POC Glucose (70-105) Total Bilirubin (0.1-1.2) mg/dL AST (5-40) units/L ALT (7-56) units/L Alkaline Phosphatase (35-129) units/L Total Protein (6.3-8.2) g/dL Lipase 572 H (13-60) units/L Ur Specific [place] (1.003-1.030) Diabetes panel 02/11/20 02/11/20 02/11/20 Range/Units Unknown Unknown Unknown Sodium TNR 141 Potassium TNR 2.2 L* Chloride TNR 89.2 L Carbon Dioxide TNR 22 BUN TNR 3 L Creatinine TNR 0.9 Glucose TNR 166 H Hemoglobin A1c 4.8 (4-6) % Calcium TNR 9.0 AST TNR 86 H ALT TNR 79 H Alkaline Phosphatase TNR 219 H Total Protein TNR 8.9 H Albumin TNR 4.2 08/24/19 Range/Units 05:42 Sodium 143 Potassium 4.4 D Chloride 93.6 L Carbon Dioxide 23 BUN 3 L Creatinine 1.0 Glucose 161 H Hemoglobin A1c (4-6) % Calcium 8.6 AST 77 H ALT 66 H Alkaline Phosphatase 171 H Total Protein 8.6 H Albumin 4.0 Calcium panel 08/23/19 08/23/19 08/24/19 Range/Units Unknown Unknown 05:42 Calcium TNR 9.0 8.6 Albumin TNR 4.2 4.0 Pituitary panel 08/23/19 08/23/19 08/24/19 Range/Units Unknown Unknown 05:42 Sodium TNR 141 143 Potassium TNR 2.2 L* 4.4 D Chloride TNR 89.2 L 93.6 L Carbon Dioxide TNR 22 23 BUN TNR 3 L 3 L Creatinine TNR 0.9 1.0 Glucose TNR 166 H 161 H Calcium TNR 9.0 8.6 Adrenal panel 08/23/19 08/23/19 08/24/19 Range/Units Unknown Unknown 05:42 Sodium TNR 141 143 Potassium TNR 2.2 L* 4.4 D Chloride TNR 89.2 L 93.6 L Carbon Dioxide TNR 22 23 BUN TNR 3 L 3 L Creatinine TNR 0.9 1.0 Glucose TNR 166 H 161 H Calcium TNR 9.0 8.6 Total Bilirubin TNR 1.40 H 1.30 H AST TNR 86 H 77 H ALT TNR 79 H 66 H Alkaline Phosphatase TNR 219 H 171 H Total Protein TNR 8.9 H 8.6 H Albumin TNR 4.2 4.0 - Imaging CT scan - abdomen: report reviewed, image reviewed CT scan - pelvis: report reviewed, image reviewed US - abdomen: report reviewed, image reviewed Assessment and Plan 44-year-old male with acute pancreatitis Plan: 1. Ok to start clear liquid diet for dinner. Continue aggressive IVF hydration - increase fluids to 200cc/hr 2. trend lipase and LFTs 3. hep panel ordered 4. Imaging reviewed. No gallstones or gallbladder abnormality on U/S abd. 5. Gi consult reviewed 6. Pancreatitis likely etoh related. Recommend etoh cessation. Thank you, please call with questions.
--- NOTE | 2019-08-24 11:40 | Ultrasound Report ---
ULTRASOUND ABDOMEN, LIMITED (RIGHT UPPER QUADRANT) INDICATION: pancreatitis, r/o cholelithiasis. COMPARISON: CT scan dated 08/23/2019 FINDINGS: Pancreas: Pancreas is abnormal in appearance. There is heterogeneous attenuation and some fluid atten uation around the pancreas suggesting pancreatitis. Liver: The liver is enlarged measuring 20 cm in length. There is increased echogenicity in the liver characteristic of fatty infiltration. Gallbladder: Normal. Bile ducts: Normal. Common Bile Duct measures 2 mm. Free fluid: None. Additional Findings: None. IMPRESSION: 1. There is pancreatitis. This is better demonstrated on the patient's CT scan performed on 08/23/2019 2. There is hepatomegaly with fatty infiltration of the liver 3. No gallstones are seen. There is no biliary dilatation. Signer Name: Alton Echeverria MD Signed: 08/24/2019 11:36 AM Workstation Name: [id number]
--- NOTE | 2019-08-24 12:41 | Progress Note ---
Assessment and Plan (1) Acute pancreatitis Current Visit: Yes Status: Acute Qualifiers: Pancreatitis type: unspecified pancreatitis type Plan to address problem: CT scan and lipase consistent with acute pancreatitis Keep the patient nothing by mouth IV fluids for now IV Dilaudid 1 mg every 3 as needed along with Zofran and Reglan on a as needed basis TPN if necessary Symptoms may resolve in 48 to 72 hours (2) Hypokalemia Current Visit: Yes Status: Acute Plan to address problem: Supplemented with IV potassium Secondary to persistent vomiting (3) Transaminitis Current Visit: Yes Status: Acute Plan to address problem: Possible gallstone induced We will get surgery consult and GI consult (4) Acute hepatitis Current Visit: Yes Status: Acute Plan to address problem: Possible gallstone obstruction (5) Polycythemia due to fall in plasma volume Current Visit: Yes Status: Acute Plan to address problem: Polycythemia secondary to fall in volume because of vomiting Should correct with IV fluids (6) DVT prophylaxis Current Visit: Yes Status: Acute Plan to address problem: Heparin 5000 subcu every 12 and GI prophylaxis Subjective Date of service: 08/24/19 Objective - Constitutional Vitals: Vital Signs - 12hr 08/24/19 08/24/19 08/24/19 00:53 02:00 05:00 Pulse Rate Respiratory 18 18 20 Rate Blood Pressure [Right] 08/24/19 08/24/19 06:00 06:15 Pulse Rate 76 Respiratory 20 Rate Blood Pressure 136/72 [Right] - Labs CBC & Chem 7: 08/24/19 05:42 08/24/19 05:42 Labs: Abnormal lab results 08/23/19 08/23/19 08/23/19 Range/Units 13:32 Unknown Unknown WBC 13.8 H (4.5-11.0) K/mm3 Hgb 18.0 H (11.8-15.2) gm/dl Hct 51.5 H (35.5-45.6) % MCV 104 H (84-94) fl MCH 36 H (28-32) pg MCHC 35 H (32-34) % Lymph % (Auto) (13.4-35.0) % [place] % (Auto) (0.0-7.3) % Lymph # (1.2-5.4) K/mm3 [place] # (0.0-0.8) K/mm3 Seg Neutrophils % (40.0-70.0) % Seg Neuts % (Manual) 94.0 H (40.0-70.0) % Lymphocytes % (Manual) 0 L (13.4-35.0) % Nucleated RBC % 2.0 H (0.0-0.9) % Seg Neutrophils # (1.8-7.7) K/mm3 Seg Neutrophils # Man 13.0 H (1.8-7.7) K/mm3 Lymphocytes # (Manual) 0.0 L (1.2-5.4) K/mm3 Potassium (3.6-5.0) mmol/L Chloride (98-107) mmol/L BUN (9-20) mg/dL Glucose (75-100) mg/dL POC Glucose 156 H (70-105) Total Bilirubin (0.1-1.2) mg/dL AST (5-40) units/L ALT (7-56) units/L Alkaline Phosphatase (35-129) units/L Total Protein (6.3-8.2) g/dL Lipase (13-60) units/L Ur Specific [place] 1.038 H (1.003-1.030) 08/23/19 08/24/19 08/24/19 Range/Units Unknown 05:42 05:42 WBC 16.6 H (4.5-11.0) K/mm3 Hgb 17.7 H (11.8-15.2) gm/dl Hct 52.0 H (35.5-45.6) % MCV 104 H (84-94) fl MCH 36 H (28-32) pg MCHC (32-34) % Lymph % (Auto) 3.6 L (13.4-35.0) % [place] % (Auto) 10.4 H (0.0-7.3) % Lymph # 0.6 L (1.2-5.4) K/mm3 [place] # 1.7 H (0.0-0.8) K/mm3 Seg Neutrophils % 85.6 H (40.0-70.0) % Seg Neuts % (Manual) (40.0-70.0) % Lymphocytes % (Manual) (13.4-35.0) % Nucleated RBC % (0.0-0.9) % Seg Neutrophils # 14.2 H (1.8-7.7) K/mm3 Seg Neutrophils # Man (1.8-7.7) K/mm3 Lymphocytes # (Manual) (1.2-5.4) K/mm3 Potassium 2.2 L* (3.6-5.0) mmol/L Chloride 89.2 L 93.6 L (98-107) mmol/L BUN 3 L 3 L (9-20) mg/dL Glucose 166 H 161 H (75-100) mg/dL POC Glucose (70-105) Total Bilirubin 1.40 H 1.30 H (0.1-1.2) mg/dL AST 86 H 77 H (5-40) units/L ALT 79 H 66 H (7-56) units/L Alkaline Phosphatase 219 H 171 H (35-129) units/L Total Protein 8.9 H 8.6 H (6.3-8.2) g/dL Lipase 526 H (13-60) units/L Ur Specific [place] (1.003-1.030) 08/24/19 Range/Units 05:42 WBC (4.5-11.0) K/mm3 Hgb (11.8-15.2) gm/dl Hct (35.5-45.6) % MCV (84-94) fl MCH (28-32) pg MCHC (32-34) % Lymph % (Auto) (13.4-35.0) % [place] % (Auto) (0.0-7.3) % Lymph # (1.2-5.4) K/mm3 [place] # (0.0-0.8) K/mm3 Seg Neutrophils % (40.0-70.0) % Seg Neuts % (Manual) (40.0-70.0) % Lymphocytes % (Manual) (13.4-35.0) % Nucleated RBC % (0.0-0.9) % Seg Neutrophils # (1.8-7.7) K/mm3 Seg Neutrophils # Man (1.8-7.7) K/mm3 Lymphocytes # (Manual) (1.2-5.4) K/mm3 Potassium (3.6-5.0) mmol/L Chloride (98-107) mmol/L BUN (9-20) mg/dL Glucose (75-100) mg/dL POC Glucose (70-105) Total Bilirubin (0.1-1.2) mg/dL AST (5-40) units/L ALT (7-56) units/L Alkaline Phosphatase (35-129) units/L Total Protein (6.3-8.2) g/dL Lipase 572 H (13-60) units/L Ur Specific [place] (1.003-1.030)
[2019-08-25] MEDS: METOCLOPRAMIDE 10 MG/2 ML INJ IV PRN ×2 (01:09→08:28)
[2019-08-25] MEDS: HYDROmorphone 1 MG/1 ML INJ IV PRN ×3 (01:09→08:27)
[2019-08-25 04:59] LABS: Basophils # (Auto) 0.1 K/mm3 (0.0-0.1); Basophils % (Auto) 0.4 % (0.0-1.8); Hematocrit 50.1 % (35.5-45.6); Hemoglobin 16.9 gm/dl (11.8-15.2); Lymphocytes # (Auto) 0.9 K/mm3 (1.2-5.4); Mean Corpuscular HGB Conc 34 % (32-34); Mean Corpuscular Volume 105 fl (84-94); Monocytes # (Auto) 2.2 K/mm3 (0.0-0.8); Monocytes % (Auto) 11.4 % (0.0-7.3); Platelet Count 151 K/mm3 (140-440); Red Blood Count 4.77 M/mm3 (3.65-5.03); Red Cell Distribution Width 14.6 % (13.2-15.2)
[2019-08-25] MEDS: ONDANSETRON 4 MG/2 ML INJ IV PRN (05:21)
[2019-08-25 05:24] LABS: Alanine Aminotransferase 42 units/L (7-56); Albumin 3.4 g/dL (3.9-5); BUN/Creatinine Ratio 10; Blood Urea Nitrogen 9 mg/dL (9-20); Calcium 7.1 mg/dL (8.4-10.2); Hemolysis Index 5
[2019-08-25 09:09] LABS: Bilirubin,Direct 1.5 mg/dL (0-0.2)
--- NOTE | 2019-08-25 10:18 | Gastroenterology Progress Note ---
<ALANA MCPHERSON - Last Filed: 08/25/19 11:02> Assessment and Plan 1.abdominal pain 2.elevated LFTs 3.ETOH abuse 4.acute pancreatitis -afebrile -WBC 19-trending up -H/H 16.9/50.1 -plt WNL -LFTs- T.aarti 2.60 trend up (AST 54, ALT 42, alk phos 110-trended down) -lipase 29-trending down -abd CT and U/S showed pancreatitis and hepatic steatosis but no gallstones or biliary dilitation -etiology-most likely 2/2 ETOH -clinically, patient reports continued abd pain but no N/V or signs of bleeding. Tolerating clears. -triglyceride level, INR, and CRP in am -consider MRI based on clinical course (if T.aarti/WBC continue to elevate) -start on trial of full liquids-advance as tolerated -continue to trend labs and supportive care (IVF, pain control, antiemetics, empiric antibiotics, etc.) -alcohol cessation discussed/encouraged with patient -will follow Subjective Date of service: 08/25/19 Principal diagnosis: pancreatitis Interval history: No acute distress. Reports continued abd pain. No N/V this am. Tolerating clears. Objective - Constitutional Vitals: Temp Pulse Resp BP Pulse Ox 98.1 F 104 H 20 152/104 97 08/25/19 05:33 08/25/19 05:33 08/25/19 08:27 08/25/19 05:33 08/25/19 05:33 General appearance: no acute distress - EENT Eyes: PERRL, EOM intact ENT: hearing intact - Respiratory Respiratory effort: normal - Cardiovascular Rhythm: other (tachycardia) - Gastrointestinal General gastrointestinal: Present: soft, tender, non-distended, normal bowel sounds - Neurologic Neurological: alert and oriented x3 - Labs CBC & Chem 7: 08/25/19 04:38 08/25/19 04:38 Labs: Laboratory Results - last 24 hr 08/24/19 08/25/19 08/25/19 05:42 04:38 04:38 WBC 19.0 H RBC 4.77 Hgb 16.9 H Hct 50.1 H MCV 105 H MCH 36 H MCHC 34 RDW 14.6 Plt Count 151 Lymph % (Auto) 5.0 L [place] % (Auto) 11.4 H Eos % (Auto) 0.0 Baso % (Auto) 0.4 Lymph # 0.9 L [place] # 2.2 H Eos # 0.0 Baso # 0.1 Seg Neutrophils % 83.2 H Seg Neutrophils # 15.8 H Sodium 141 Potassium 3.0 L D Chloride 94.0 L Carbon Dioxide 25 Anion Gap 25 BUN 9 Creatinine 0.9 Estimated GFR > 60 BUN/Creatinine Ratio 10 Glucose 151 H Calcium 7.1 L D Total Bilirubin 2.50 H Direct Bilirubin Indirect Bilirubin AST 54 H ALT 42 Alkaline Phosphatase 110 Total Protein 7.5 Albumin 3.4 L Albumin/Globulin Ratio 0.8 Lipase 572 H 229 H 08/25/19 08:35 WBC RBC Hgb Hct MCV MCH MCHC RDW Plt Count Lymph % (Auto) [place] % (Auto) Eos % (Auto) Baso % (Auto) Lymph # [place] # Eos # Baso # Seg Neutrophils % Seg Neutrophils # Sodium Potassium Chloride Carbon Dioxide Anion Gap BUN Creatinine Estimated GFR BUN/Creatinine Ratio Glucose Calcium Total Bilirubin 2.60 H Direct Bilirubin 1.5 H Indirect Bilirubin 1.1 AST ALT Alkaline Phosphatase Total Protein Albumin Albumin/Globulin Ratio Lipase <JAME MCCLENDON - Last Filed: 08/25/19 15:55> Assessment and Plan Patient seen and examined; agree with note above. likely alcohol pancreatitis as well as alcoholic liver injury based on pattern of liver enzyme elevation and alcohol history (reports 4+ cocktails with javan most days of week); no biliary dilatation on US. Objective - Constitutional Vitals: Temp Pulse Resp BP Pulse Ox 97.8 F 95 H 20 145/106 98 08/25/19 11:41 08/25/19 11:41 08/25/19 12:18 08/25/19 11:41 08/25/19 11:41 - Labs CBC & Chem 7: 08/25/19 04:38 08/25/19 04:38 Labs: Laboratory Results - last 24 hr 08/25/19 08/25/19 08/25/19 04:38 04:38 08:35 WBC 19.0 H RBC 4.77 Hgb 16.9 H Hct 50.1 H MCV 105 H MCH 36 H MCHC 34 RDW 14.6 Plt Count 151 Lymph % (Auto) 5.0 L [place] % (Auto) 11.4 H Eos % (Auto) 0.0 Baso % (Auto) 0.4 Lymph # 0.9 L [place] # 2.2 H Eos # 0.0 Baso # 0.1 Seg Neutrophils % 83.2 H Seg Neutrophils # 15.8 H Sodium 141 Potassium 3.0 L D Chloride 94.0 L Carbon Dioxide 25 Anion Gap 25 BUN 9 Creatinine 0.9 Estimated GFR > 60 BUN/Creatinine Ratio 10 Glucose 151 H Calcium 7.1 L D Total Bilirubin 2.50 H 2.60 H Direct Bilirubin 1.5 H Indirect Bilirubin 1.1 AST 54 H ALT 42 Alkaline Phosphatase 110 Total Protein 7.5 Albumin 3.4 L Albumin/Globulin Ratio 0.8 Lipase 229 H
[2019-08-25] MEDS: HEPARIN 5,000 UNIT/1 ML VIAL SUB-Q SCH (10:55)
[2019-08-25] MEDS: FAMOTIDINE 20 MG/2 ML INJ IV SCH (10:56)
[2019-08-25] MEDS ORDERED: POTASSIUM CHLORIDE ER 20 MEQ TAB PO SCH ×2 (11:00→14:28)
--- NOTE | 2019-08-25 11:11 | Progress Note ---
Assessment and Plan 44-year-old male with acute pancreatitis Plan: 1. continue clear liquid diet 2. aggressive IVF hydration 3. lipase and LFTs trending down, continue to trend 4. WBC and Bili trending up, continue to trend. Will defer need for additional imaging to GI. 5. Abd u/s negative for gallstones, biliary ductal dilatation. Pancreatitis likely due to etoh. Recommend etoh cessation 6. No acute surgical intervention. Will defer further w/u to GI. Discussed with GI service. Thank you, please call with questions. Subjective Date of service: 08/25/19 Narrative: Patient seen and examined. He complains of continued epigastric abdominal pain with the severity of 7 out of 10. When asked if he has had any emesis he claims he has. However he also claims that he is tolerating clear liquids. He states he is extremely thirsty. No fevers, chills. Objective Vital Signs - 12hr 08/24/19 08/25/19 08/25/19 23:10 05:33 08:27 Temperature 98.6 F 98.1 F Pulse Rate 100 H 104 H Respiratory 20 20 20 Rate Blood Pressure 162/113 152/104 O2 Sat by Pulse 97 97 Oximetry - General physical appearance Narrative Exam: Gen.: Awake, alert, oriented 3. No apparent distress CV: S1, S2 present Respiratory: No audible wheezes Abdomen: Soft, nondistended, positive mild tenderness to palpation in the epigastrium. No rebound, rigidity, guarding Extremities: No clubbing, cyanosis, edema - Labs 08/25/19 04:38 08/25/19 04:38 Diabetes panel 08/25/19 Range/Units 04:38 Sodium 141 (137-145) mmol/L Potassium 3.0 L D (3.6-5.0) mmol/L Chloride 94.0 L (98-107) mmol/L Carbon Dioxide 25 (22-30) mmol/L BUN 9 (9-20) mg/dL Creatinine 0.9 (0.8-1.5) mg/dL Glucose 151 H (75-100) mg/dL Calcium 7.1 L D (8.4-10.2) mg/dL AST 54 H (5-40) units/L ALT 42 (7-56) units/L Alkaline Phosphatase 110 (35-129) units/L Total Protein 7.5 (6.3-8.2) g/dL Albumin 3.4 L (3.9-5) g/dL Calcium panel 08/25/19 Range/Units 04:38 Calcium 7.1 L D (8.4-10.2) mg/dL Albumin 3.4 L (3.9-5) g/dL Pituitary panel 08/25/19 Range/Units 04:38 Sodium 141 (137-145) mmol/L Potassium 3.0 L D (3.6-5.0) mmol/L Chloride 94.0 L (98-107) mmol/L Carbon Dioxide 25 (22-30) mmol/L BUN 9 (9-20) mg/dL Creatinine 0.9 (0.8-1.5) mg/dL Glucose 151 H (75-100) mg/dL Calcium 7.1 L D (8.4-10.2) mg/dL Adrenal panel 08/25/19 08/25/19 Range/Units 04:38 08:35 Sodium 141 (137-145) mmol/L Potassium 3.0 L D (3.6-5.0) mmol/L Chloride 94.0 L (98-107) mmol/L Carbon Dioxide 25 (22-30) mmol/L BUN 9 (9-20) mg/dL Creatinine 0.9 (0.8-1.5) mg/dL Glucose 151 H (75-100) mg/dL Calcium 7.1 L D (8.4-10.2) mg/dL Total Bilirubin 2.50 H 2.60 H (0.1-1.2) mg/dL AST 54 H (5-40) units/L ALT 42 (7-56) units/L Alkaline Phosphatase 110 (35-129) units/L Total Protein 7.5 (6.3-8.2) g/dL Albumin 3.4 L (3.9-5) g/dL
[2019-08-25] MEDS ORDERED: KETOROLAC 30 MG/1 ML INJ IV SCH (12:00)
--- NOTE | 2019-08-25 14:26 | Progress Note ---
Subjective Date of service: 08/25/19 Principal diagnosis: pancreatitis Objective - Constitutional Vitals: Vital Signs - 12hr 08/25/19 08/25/19 08/25/19 05:33 08:27 11:41 Temperature 98.1 F 97.8 F Pulse Rate 104 H 95 H Respiratory 20 20 20 Rate Blood Pressure 152/104 145/106 O2 Sat by Pulse 97 98 Oximetry 08/25/19 12:18 Temperature Pulse Rate Respiratory 20 Rate Blood Pressure O2 Sat by Pulse Oximetry - Labs CBC & Chem 7: 08/25/19 04:38 08/25/19 04:38 Labs: Abnormal lab results 08/25/19 08/25/19 08/25/19 Range/Units 04:38 04:38 08:35 WBC 19.0 H (4.5-11.0) K/mm3 Hgb 16.9 H (11.8-15.2) gm/dl Hct 50.1 H (35.5-45.6) % MCV 105 H (84-94) fl MCH 36 H (28-32) pg Lymph % (Auto) 5.0 L (13.4-35.0) % [place] % (Auto) 11.4 H (0.0-7.3) % Lymph # 0.9 L (1.2-5.4) K/mm3 [place] # 2.2 H (0.0-0.8) K/mm3 Seg Neutrophils % 83.2 H (40.0-70.0) % Seg Neutrophils # 15.8 H (1.8-7.7) K/mm3 Potassium 3.0 L D (3.6-5.0) mmol/L Chloride 94.0 L (98-107) mmol/L Glucose 151 H (75-100) mg/dL Calcium 7.1 L D (8.4-10.2) mg/dL Total Bilirubin 2.50 H 2.60 H (0.1-1.2) mg/dL Direct Bilirubin 1.5 H (0-0.2) mg/dL AST 54 H (5-40) units/L Albumin 3.4 L (3.9-5) g/dL Lipase 229 H (13-60) units/L
[2019-08-25] MEDS ORDERED: POTASSIUM CHLORIDE ER 20 MEQ TAB PO ONE (14:27)
[2019-08-25] MEDS ORDERED: FOLIC ACID 1 MG TAB PO SCH (15:00)
[2019-08-25] MEDS ORDERED: THIAMINE 100 MG TAB PO SCH (15:00)
[2019-08-25 17:13] VITALS: BP 134/92
[2019-08-26] MEDS ORDERED: FAMOTIDINE 20 MG TAB PO SCH (10:00)
== END 2019-08-25 17:45 | disposition left against medical advice (07) | DRG 441 ==
LOC: ED 12:34 → 3A 16:44
PROVIDERS: ADMIT Internal Medicine; ATTEND Internal Medicine
DX: B17.9 Acute viral hepatitis, unspecified (principal); K85.20 Alcohol induced acute pancreatitis without necrosis or infection; E87.6 Hypokalemia; D75.1 Secondary polycythemia; F10.10 Alcohol abuse, uncomplicated; K76.0 Fatty (change of) liver, not elsewhere classified; R74.0 Nonspecific elevation of levels of transaminase and lactic acid dehydrogenase [LDH]; F17.200 Nicotine dependence, unspecified, uncomplicated; F12.90 Cannabis use, unspecified, uncomplicated; I10 Essential (primary) hypertension; Z71.41 Alcohol abuse counseling and surveillance of alcoholic; Z82.49 Family history of ischemic heart disease and other diseases of the circulatory system; Z88.0 Allergy status to penicillin
CPT/HCPCS: 36415; 74177; 76705; 80053; 80307; 81001; 82247; 82248; 82962; 83036; 83690; 85007; 85025; 87040; 99406; G0378; J1170; J1644; J1885; J2270; J2405; J2765; J3480; J7030; J7042; Q9967

== ENCOUNTER 2020-03-10 10:56 | Emergency (ER) | payer OTHER ==
[2020-03-10 11:09] VITALS: BP 136/93
[2020-03-10] MEDS ORDERED: IBUPROFEN 600 MG TAB PO ONE (13:55)
[2020-03-10] MEDS ORDERED: CYCLOBENZAPRINE 10 MG TAB PO ONE (13:55)
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
== END 2020-03-10 15:25 | disposition home or self-care (01) ==
LOC: ED 10:56
DX: S39.012A Strain of muscle, fascia and tendon of lower back, initial encounter (principal); S53.402A Unspecified sprain of left elbow, initial encounter; S29.012A Strain of muscle and tendon of back wall of thorax, initial encounter; M25.512 Pain in left shoulder; I10 Essential (primary) hypertension; F17.200 Nicotine dependence, unspecified, uncomplicated; Z98.890 Other specified postprocedural states; Z79.899 Other long term (current) drug therapy; Z88.0 Allergy status to penicillin; V49.49XA Driver injured in collision with other motor vehicles in traffic accident, initial encounter; Y93.89 Activity, other specified; Y92.410 Unspecified street and highway as the place of occurrence of the external cause; Y99.8 Other external cause status
CPT/HCPCS: 72072; 72100